=== PATIENT | female | born 1975 | race Two or more races ===

== ENCOUNTER 2023-04-04 12:44 | Emergency (ER) | payer OTHER ==
[~2023-04-04] VITALS: Ht 170.2 cm; Wt 74.7 kg
[2023-04-04] MEDS ORDERED: ACETAMINOPHEN 500 MG TAB PO ONE (14:45)
[2023-04-04 14:58] VITALS: BP 115/80; PULSE 80; RESP 18; O2SAT 99
== END 2023-04-04 14:59 | disposition home or self-care (01) ==
LOC: ER 12:44
DX: S29.011A Strain of muscle and tendon of front wall of thorax, initial encounter (principal); S06.891A Other specified intracranial injury with loss of consciousness of 30 minutes or less, initial encounter; V48.5XXA Car driver injured in noncollision transport accident in traffic accident, initial encounter; Y93.I9 Activity, other involving external motion; Y92.89 Other specified places as the place of occurrence of the external cause; Y99.8 Other external cause status
CPT/HCPCS: 70450; 71101